=== PATIENT | male | born 1965 | race Caucasian/White ===

== ENCOUNTER → 2017-02-10 | Outpatient (CLI) | payer BC ==
[~2017-02-10] MED LIST: COZAAR100 MG PO; HCTZ 25MG TAB25 MG PO; LIPITOR 80MG80 MG PO; NORCO 325 MG-51 TAB PO; PROTONIX 40MG T40 MG PO
== END ==
LOC: COL.RAD 12:55
DX: J32.9 Chronic sinusitis, unspecified (principal)

== ENCOUNTER 2017-12-07 07:05 | Day surgery (SDC) | payer BC ==
[~2017-12-07] VITALS: Ht 180.3 cm; Wt 120.6 kg
[2017-12-07 07:20] VITALS: BP 131/94; PULSE 95; TEMP 97.6
[2017-12-07] MEDS ORDERED: MASON NATURAL500 MG PO (07:45)
[2017-12-07] MEDS ORDERED: NEURONTIN300 MG/CAP PO (07:45)
[2017-12-07] MEDS ORDERED: OMEGA-3 1000 MG1 CAP PO (07:46)
[2017-12-07] MEDS ORDERED: CENTRUM MEN'S PO (07:48)
[2017-12-07] MEDS ORDERED: VITAMIN B122500 MCG SL (07:48)
[2017-12-07] MEDS ORDERED: THE MEDICINE S200 M2 PO (07:48)
[2017-12-07] MEDS ORDERED: VITAMIN C500 MG PO (07:49)
[2017-12-07] MEDS ORDERED: NATURAL E400 IU PO (07:50)
[2017-12-07] MEDS ORDERED: CPAP (07:51)
[2017-12-07 09:00] VITALS: BP 119/76; PULSE 73
[2017-12-07 09:15] VITALS: BP 115/87; PULSE 73
[2017-12-07 09:30] VITALS: BP 109/78; PULSE 74
[2017-12-07 09:45] VITALS: BP 111/75; PULSE 71
== END 2017-12-07 10:00 | disposition home or self-care (01) ==
LOC: SDCO 07:05
DX: Z12.11 Encounter for screening for malignant neoplasm of colon (principal); D12.3 Benign neoplasm of transverse colon; D12.5 Benign neoplasm of sigmoid colon; K63.5 Polyp of colon; K64.0 First degree hemorrhoids; K21.9 Gastro-esophageal reflux disease without esophagitis; I10 Essential (primary) hypertension; I73.9 Peripheral vascular disease, unspecified; E78.00 Pure hypercholesterolemia, unspecified
CPT/HCPCS: OP; J2250; J2405; J3010; J7030

== ENCOUNTER → 2022-12-22 | Outpatient (CLI) | payer BC ==
[~2022-12-22] MED LIST changes: +CENTRUM MEN'S PO; +CPAP; +MASON NATURAL500 MG PO; +NATURAL E400 IU PO; +NEURONTIN300 MG/CAP PO; +OMEGA-3 1000 MG1 CAP PO; +THE MEDICINE S200 M2 PO; +VITAMIN B122500 MCG SL; +VITAMIN C500 MG PO
== END ==
LOC: COL.RAD 13:31
DX: Z12.2 Encounter for screening for malignant neoplasm of respiratory organs (principal); F17.200 Nicotine dependence, unspecified, uncomplicated